=== PATIENT | male | born 1955 | race American Indian/Alaskan Native ===

== ENCOUNTER → 2019-04-01 | Day surgery (SDC) | payer OTHER ==
[2019-03-31 12:07] VITALS: BMI 27.7
[~2019-04-01] MED LIST: CEFAZOLIN 1 GM/D5W 1 GM/50 ML BAG ONE; CITRIC ACID/SODIUM CITRATE 30 ML UNIT-DOSE CUP ONE
[2019-04-01 11:05] VITALS: TEMP 98.4
[2019-04-01 11:36] VITALS: PULSE 66
[2019-04-01 13:25] VITALS: BP 104/69
--- NOTE | 2019-04-04 14:10 | PATH ---
Surgical Pathology Report Patient Name: YVONNE HERRMANN [facility]. Rec. #: [id number] /Age/Gender: 1955 (Age: 63) / M Account: [id number] Location: [facility]-ENDOSCOPY Taken: 04/01/2019 Received: 04/01/2019 Reported: 04/04/2019 Physicians: Anila Fan M.D. Specimen(s) Received A: DUODENUM, SECOND PORTION AND DUODENAL BULB B: ANTRUM AND BODY C: POLYP PROXIMAL TRANSVERSE COLON D: POLYP DISTAL TRANSVERSE COLON Clinical History Alcoholic hepatitis screening Postoperative diagnosis: Hiatal hernia, colon polyps Final Diagnosis A. 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 SEE COMMENT. B. STOMACH, ANTRUM AND BODY, BIOPSY: GASTRIC MUCOSA WITH MILD CHRONIC GASTRITIS. IMMUNOHISTOCHEMICAL STAIN FOR H. PYLORI IS NEGATIVE. C. PROXIMAL TRANSVERSE COLON, POLYP, POLYPECTOMY: TUBULAR ADENOMA. D. DISTAL TRANSVERSE COLON, POLYP, BIOPSY: TUBULAR ADENOMA. Comment: Part A, the finding is non-specific and may be seen in gluten sensitive enteropathy (celiac disease) and chronic duodenitis. In the presence of chronic inflammation the findings are likely related to chronic duodenitis. Serological correlations are suggested if clinically indicated Electronically Signed Vilma Staples M.D. Gross Description A. Received in formalin, labeled "biopsy second portion of duodenum and bulb" are 4 ferguson, irregular portions of soft tissue ranging from 0.2-0.5 cm. in greatest dimension. The specimens are submitted in toto in one cassette. B. Received in formalin, labeled "biopsy antrum and body" are 4 ferguson, irregular portions of soft tissue ranging from 0.2-0.5 cm. in greatest dimension. The specimens are submitted in toto in one cassette. C. Received in formalin, labeled "polyp proximal transverse" are 2 ferguson, irregular portions of soft tissue averaging 0.3 cm. in greatest dimension. The specimens are submitted in toto in one cassette. D. Received in formalin, labeled "biopsy distal transverse colon polyp" are 3 ferguson, irregular portions of soft tissue ranging from 0.1-0.3 cm. in greatest dimension. The specimens are submitted in toto in one cassette. DL/04/01/2019 saudi04/01/2019
== END | disposition home or self-care (01) ==
LOC: JASU-ENDO 08:58
PROVIDERS: ATTEND Internal Medicine Gastroenterology
PROC: 0DBL8ZX Excision of Transverse Colon, Via Natural or Artificial Opening Endoscopic, Diagnostic (ICD-10-PCS; 2019-04-01)
PROC: 0DB98ZX Excision of Duodenum, Via Natural or Artificial Opening Endoscopic, Diagnostic (ICD-10-PCS; 2019-04-01)
PROC: 0DB68ZX Excision of Stomach, Via Natural or Artificial Opening Endoscopic, Diagnostic (ICD-10-PCS; 2019-04-01)
PROC: 0DBL8ZX Excision of Transverse Colon, Via Natural or Artificial Opening Endoscopic, Diagnostic (ICD-10-PCS; principal; 2019-04-01 09:45)
DX: Z12.11 Encounter for screening for malignant neoplasm of colon (principal); D12.3 Benign neoplasm of transverse colon; K64.8 Other hemorrhoids; Z13.810 Encounter for screening for upper gastrointestinal disorder; K29.80 Duodenitis without bleeding; K29.50 Unspecified chronic gastritis without bleeding; I10 Essential (primary) hypertension; E78.5 Hyperlipidemia, unspecified; E11.9 Type 2 diabetes mellitus without complications; E03.9 Hypothyroidism, unspecified
CPT/HCPCS: 82962; 88305-TC; 88342-TC

== ENCOUNTER 2022-09-22 13:38 | Emergency (ER) | payer OTHER ==
[2022-09-22 13:51] VITALS: RESP 18; TEMP 99.1; BMI 29.4
[2022-09-22] MEDS ORDERED: KETOROLAC TROMETHAMINE 15 MG/ML VIAL IVPUSH ONE (14:51)
[2022-09-22] MEDS ORDERED: KETOROLAC TROMETHAMINE 15 MG/ML VIAL ONE (15:29)
[2022-09-22 16:12] LABS: EPI CELLS 1 /uL (0-25.1); HYALINE CASTS 0 /uL (0-3.1); PH,URINE 6.5 (5.0-8.0); URINE APPEARANCE CLEAR; URINE BACTERIA 0 /uL (0-1359); URINE BILIRUBIN NEGATIVE (NEGATIVE); URINE COLOR YELLOW; URINE GLUCOSE (UA) NEGATIVE (NEGATIVE); URINE KETONE NEGATIVE (NEGATIVE); URINE LEUK ESTERASE NEGATIVE (NEGATIVE); URINE NITRITE NEGATIVE (NEGATIVE); URINE PROTEIN NEGATIVE (NEGATIVE); URINE RBC 13 /uL (0-23.9); URINE UROBILINOGEN 0.2 mg/dL (0.2-1.0); URINE WBC 1 /uL (0-25.8)
[2022-09-22 17:16] LABS: HEMATOCRIT 40.4 % (35.4-49); HEMOGLOBIN 13.8 GM/dL (11.7-16.9); MCH 30.8 pg (25.7-33.7); MCHC 34.1 g/dl (32.0-35.9); MEAN CELL VOLUME 90.4 fl (80-96); MEAN PLT VOLUME 9.9 fl (7.5-11.1); PLATELET COUNT 250 10^3/uL (134-434); RBC 4.47 M/mm3 (4.00-5.60); RDW 12.4 % (11.9-15.9); WHITE BLOOD COUNT 9.4 K/mm3 (4.0-10.0)
[2022-09-22 17:21] LABS: INR 0.97 (0.83-1.09); PROTHROMBIN TIME (PATIENT) 11.3 SEC (9.7-13.0)
[2022-09-22 17:24] LABS: ACTIVATED PTT 30.6 SECONDS (25.2-36.5)
[2022-09-22 17:39] LABS: BLOOD UREA NITROGEN 14.5 mg/dL (7-18)
[2022-09-22 17:40] LABS: ALBUMIN 4.4 g/dl (3.4-5.0)
[2022-09-22 17:42] LABS: CREATININE 1.4 mg/dL (0.55-1.3)
[2022-09-22 17:43] LABS: BILIRUBIN,TOTAL 0.7 mg/dL (0.2-1); TOT PROT 8.1 g/dl (6.4-8.2)
[2022-09-22] MEDS ORDERED: LIDOCAINE 5% TOPICAL PATCH TP ONE (17:57)
[2022-09-22] MEDS ORDERED: ACETAMINOPHEN 500 MG TABLET (FP) PO ONE (17:57)
[2022-09-22] MEDS ORDERED: ACETAMINOPHEN 500 MG TABLET (FP) ONE (19:21)
[2022-09-22] MEDS ORDERED: LIDOCAINE 5% TOPICAL PATCH ONE (19:27)
[2022-09-22 21:37] VITALS: BP 162/75; PULSE 74
[2022-09-22] MEDS ORDERED: LIDOCAINE PATCH REMOVAL MC SCH (22:00)
== END 2022-09-22 21:52 | disposition home or self-care (01) ==
LOC: JERFT 13:38
PROC: 3E0333Z Introduction of Anti-inflammatory into Peripheral Vein, Percutaneous Approach (ICD-10-PCS; principal; 2022-09-22)
DX: S22.42XA Multiple fractures of ribs, left side, initial encounter for closed fracture (principal); R07.81 Pleurodynia; M54.9 Dorsalgia, unspecified; R10.9 Unspecified abdominal pain; R05.9 Cough, unspecified; W01.190A Fall on same level from slipping, tripping and stumbling with subsequent striking against furniture, initial encounter
CPT/HCPCS: 36415; 71260-TC; 74177-TC; 80053; 81003; 85027; 85610; 85730; 86850; 86900; 86901; 87040; 87086; 99285-25; Q9967